=== PATIENT | male | born 1990 | race Caucasian/White ===

== ENCOUNTER → 2018-04-07 17:32 | Outpatient (CLI) | payer BC | END | disposition home or self-care (01) | LOC: D.LABREF 17:32 | DX: R31.9 Hematuria, unspecified (principal) ==

== ENCOUNTER → 2018-04-11 15:00 | Outpatient (CLI) | payer MEDICAID ==
[2018-04-11 15:38] LABS: APPEARANCE CLEAR (CLEAR); BILIRUBIN NEGATIVE (NEGATIVE); COLOR YELLOW (YELLOW); GLUCOSE NEGATIVE (NEGATIVE); KETONE NEGATIVE (NEGATIVE); NITRITE NEGATIVE (NEGATIVE); PROTEIN NEGATIVE (NEGATIVE); UROBILINOGEN NORMAL (NORMAL)
== END | disposition home or self-care (01) ==
LOC: D.LAB 15:00 → D.CT 16:30
PROVIDERS: ATTEND Urology
DX: R31.21 Asymptomatic microscopic hematuria (principal); N32.0 Bladder-neck obstruction

== ENCOUNTER 2018-05-13 06:46 | Day surgery (SDC) | payer MEDICAID ==
[~2018-05-13] VITALS: Ht 190.5 cm; Wt 70.3 kg
[2018-05-13 07:13] VITALS: BP 110/70; Ht 190.5 cm; Wt 70.3 kg
--- NOTE | 2018-05-13 10:21 | NUR ---
0952 - SHORT STAY PER ANESTHESIA
--- NOTE | 2018-05-13 11:11 | OP ---
PATIENT NAME: REFUGIO COLEY MEDICAL RECORD: [id number] :86 LOCATION:D[facility] ADMISSION DATE: SURGEON: AIDEN VEGA MD DATE OF OPERATION: 05/13/2018 SURGEON: Aiden Vega MD ANESTHESIA: TIVA by Calus Rivas CRNA DIAGNOSES: Microscopic hematuria, bulbar urethral stricture, interstitial cystitis. PROCEDURES: Cystoscopy, dilation of urethral stricture, hydrodistention of the bladder, intravesical Rimso instillation. FINDINGS: Mild annular bulbar urethral stricture, which was dilated with the scope. Tall bladder neck. Nonobstructive prostatic lateral lobes. Single ureteral orifices bilaterally in the bladder. Diffuse bladder inflammation was seen without any bladder tumors. BLOOD LOSS: None. CLINICAL HISTORY: This is a 27-year-old male, who is being investigated for microscopic hematuria. He also complains of a slow urinary flow and urinary frequency every 1 hour. He has no history of sexually transmitted infections. He had a CT scan, which was normal. Urine cytology was normal. PSA was 0.92 on 04/11/2018. He requires cystoscopy to complete the hematuria workup. Also, I will try to determine why he has urinary frequency, urgency and a slow urinary flow. He is allergic to no medications. 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 DESCRIPTION OF PROCEDURE: The patient was given IV sedation. He was placed in the lithotomy position. The optic urethrotome with 12-degree lens was used for visualization. Penile urethra was normal until the bulbar urethra when we noted a small annular urethral stricture. However, the scope was able to pass through the stricture zone and dilate this very focal stricture. The prostatic urethra was not obstructive. The bladder neck was rather tall and he may have some degree of bladder neck stenosis. Going into the bladder, he has diffuse bladder inflammation with no signs of bladder tumors. He seems to have interstitial cystitis. I distended the bladder to 500 mL of fluid and held it for 2 minutes. The bladder was then emptied through the cystoscope. We inserted a red rubber catheter into the bladder and instilled 50 mL of Rimso solution into the bladder. I will see him in followup in 2 weeks' time. If the bladder symptoms are not improved sufficiently, then we will continue with further Rimso treatments. TRANSINT:[id number] Voice Confirmation ID: [id number] DOCUMENT ID: [id number] OPERATIVE REPORT [id number] REFUGIO COLEY ROBERT S MD at 1111 CC: [id number] DICTATION DATE: 05/13/1854 CARPET REPAIRER: 05/13/18 1058 REG [facility] [address] [id number]
--- NOTE | 2018-05-13 15:31 | NUR ---
1130 DRESSED. AWAKE & ALERT. GIVEN DISCHARGE INFORMATION INCLUDING: MED REC, RTC APPT., [facility] OUTPATIENT D/C INSTRUCTIONS, & COMPUTER GENERTAED POST URETHROTOMY & POST CYSTOSCOPY D/C INSTRUCTIONS. PT VOICED UNDERSTANDING. TO PRIVATE CAR PER WHEELCHAIR BY VOLUNTEER. HOME WITH MOTHER. Mana BERNARDO R.N.
== END 2018-05-13 11:30 | disposition home or self-care (01) ==
LOC: D.OPS 06:46 → D.PAN 08:20 → D.OPS 08:55 → D.PAN 09:15 → D.OPS 11:30
PROVIDERS: ATTEND Urology
DX: N35.812 Other bulbous urethral stricture, male (principal); N30.11 Interstitial cystitis (chronic) with hematuria; R31.29 Other microscopic hematuria; Z01.812 Encounter for preprocedural laboratory examination